=== PATIENT | female | born 1960 | race Caucasian/White ===

== ENCOUNTER → 2018-10-17 | Outpatient (CLI) | payer OTHER | LOC: M.MRI 07:24 | DX: M17.12 Unilateral primary osteoarthritis, left knee (principal); S83.242A Other tear of medial meniscus, current injury, left knee, initial encounter; Z96.652 Presence of left artificial knee joint; X58.XXXA Exposure to other specified factors, initial encounter; Y93.89 Activity, other specified; Y92.89 Other specified places as the place of occurrence of the external cause; Y99.8 Other external cause status ==

== ENCOUNTER 2018-11-21 07:17 | Inpatient (IN) | payer OTHER ==
[2018-11-07 09:50] LABS: URINE BILIRUBIN NEGATIVE (Negative); URINE BLOOD NEGATIVE (Negative); URINE CLARITY CLEAR; URINE COLOR YELLOW; URINE GLUCOSE-RANDOM NEGATIVE (Negative); URINE KETONES NEGATIVE (Negative); URINE LEUKOCYTES-REFLEX NEGATIVE (Negative); URINE NITRITE-REFLEX NEGATIVE (Negative); URINE PROTEIN NEGATIVE (Negative); URINE UROBILINOGEN 0.2 E.U./dl (0.2-1.0)
[2018-11-07 09:56] LABS: HEMATOCRIT 36.3 % (37.0-47.0); HEMOGLOBIN 11.8 gm/dL (12.0-15.0); MCH 27.6 pg (26.0-34.0); MCHC 32.6 g/dL (28.0-37.0); MCV 84.7 fL (80.0-100.0); MPV 7.7 fl. (7.2-11.1); RBC 4.28 mil/uL (4.20-5.00); RDW-CV 13.6 % (10.5-14.5); WBC 6.2 thou/uL (4.0-11.0)
[2018-11-07 09:57] LABS: ALBUMIN 3.7 g/dL (3.4-5.0); CALCIUM 8.6 mg/dL (8.5-10.1); CREATININE 0.8 mg/dL (0.6-1.3); POTASSIUM 3.2 mmol/L (3.5-5.1); TOTAL BILIRUBIN 0.4 mg/dL (<0.1-1.0); TOTAL PROTEIN 7.8 g/dL (6.4-8.2)
--- NOTE | 2018-11-07 16:31 | EKG ---
[place] [address] ELECTROCARDIOGRAM REPORT Name: BYRON FERNANDES Room: PRE IN [facility]#: [id number] Admission: Attend Phys: Kelley Raphael Discharge: Date of : 56 Report #: [id number] THIS REPORT FOR: //name// [facility] Test Date: 2018-11-07 Test Time: 09:45:51 Pat Name: BYRON CAINGAN Department: Room: Gender: F Lithographic Etcher: : 1960 Requested By: Gilbert Millard Order Number: [id number] Reading MD: Keron Hummel Measurements Intervals [place] Rate: 65 P: 50 NM: 141 QRS: 66 QRSD: 90 T: 44 QT: 441 QTc: 459 Interpretive Statements Sinus rhythm No previous ECG available for comparison Electronically Signed On 11-07-2018 16:31:36 [employer] by Keron Hummel [email or web address] <ELECTRONICALLY SIGNED> By: Keron Hummel MD, [facility] 11/07/18 1631 0945 [id number] Keron Hummel MD, FACC /EPI
[~2018-11-21] VITALS: Ht 175.3 cm; Wt 95.3 kg
[~2018-11-21 07:17] MED LIST: HORMONE REPLACEMENT PO; HYDROCHLOROTHIA25 M2 PO; SYNTHROID125 MC1 PO; TYLENOL EXTRA500 MG PO; ZANTAC 150MG T150 MG PO
[2018-11-21 12:05] VITALS: BP 156/90
[2018-11-21 16:02] VITALS: BP 142/86
[2018-11-21 19:50] VITALS: BP 118/61
[2018-11-22] VITALS: BP 117/50
[2018-11-22 04:00] VITALS: BP 109/55
[2018-11-22 04:33] LABS: HEMATOCRIT 30.8 % (37.0-47.0); HEMOGLOBIN 9.7 gm/dL (12.0-15.0); MCH 26.5 pg (26.0-34.0); MCHC 31.7 g/dL (28.0-37.0); MCV 83.5 fL (80.0-100.0); MPV 8.4 fl. (7.2-11.1); NUCLEATED RBCS 0 /100WBC; PLATELET COUNT* 343 thou/uL (150-400); RBC 3.68 mil/uL (4.20-5.00); RDW-CV 13.9 % (10.5-14.5); WBC 16.7 thou/uL (4.0-11.0)
[2018-11-22 04:45] LABS: CALCIUM 8.1 mg/dL (8.5-10.1); CREATININE 0.8 mg/dL (0.6-1.3); MAGNESIUM 2.2 mg/dL (1.8-2.4); POTASSIUM 3.5 mmol/L (3.5-5.1)
[2018-11-22 07:13] LABS: ABSOLUTE LYMPHOCYTES 1.3 thou/uL (0.8-5.3); ABSOLUTE MONOCYTES 0.7 thou/uL (0.0-1.2); ABSOLUTE NEUTROPHILS 14.7 thou/uL (1.6-8.1); ATYPICAL LYMPHS 2 %; PLATELET ESTIMATE ADEQUATE
[2018-11-22 08:05] VITALS: BP 114/55
[2018-11-22] MEDS ORDERED: SENNA PLUS TAB1 EACH PO (12:13)
[2018-11-22] MEDS ORDERED: XARELTO10 MG PO (12:13)
[2018-11-22 14:37] VITALS: BP 114/55
[2018-11-22] MEDS ORDERED: PERCOCET PO (15:39)
--- NOTE | 2018-11-22 16:41 | OP ---
[address] [address] OPERATIVE REPORT Name: BYRON FERNANDES Room: [address] M.R.#: [id number] Admission: 11/21/18 Attend Phys: Kelley Raphael Discharge: Date of : 56 Report #: [id number] THIS REPORT FOR: //name// CC: Jaylin Frederick DATE OF SERVICE: 11/21/2018 PREOPERATIVE DIAGNOSIS: Left knee osteoarthritis. POSTOPERATIVE DIAGNOSIS: Left knee osteoarthritis. PROCEDURE: Left total knee arthroplasty. SURGEON: Gilbert Millard II, DIRECTOR IT PROJECT: JESUS ALBERTO Ho. ANESTHESIA: General endotracheal. ESTIMATED BLOOD LOSS: 50 mL. ANTIBIOTICS: Ancef preoperatively. DRAINS: Medium Hemovac. COMPLICATIONS: None. CONDITION: Stable to recovery room. IMPLANTS: Look in the operative record and progress note. BRIEF HISTORY: The patient was seen in the preoperative area. Preop H and P was performed. Site was marked, questions were answered. Risks and benefits were discussed with the patient in detail about surgery. The patient wished to proceed and assumed all risks. The patient did have previous history of infections with her other total knee, was discussed she has a significantly higher risk of this knee getting infection. The patient assumed this risk and wished to proceed. We will continue with vancomycin in the cement as well as vancomycin postoperatively to attempt to alleviate any concerns of infection, although this is a possibility due to the surgery and the patient's prior history. DESCRIPTION OF PROCEDURE: The patient was taken to the operative suite and placed supine on the operating table and [place] [address] OPERATIVE REPORT Name: BYRON FERNANDES Room: [address] M.R.#: [id number] Admission: 11/21/18 Attend Phys: Kelley Raphael Discharge: Date of : 56 Report #: [id number] well-padded tourniquet applied to upper thigh, was inflated to 300 mmHg after gravity exsanguination. The operative knee was sterilely prepped and draped. Surgery began by midline incision. This was carried down to subcutaneous tissues. A medial parapatellar arthrotomy was performed and carried down to bone. The patella was then everted and excess soft tissue was removed from around the femur. The femoral cutting block was then applied, checked with a drop demetra for rotational alignment, pinned in appropriate position and appropriate cuts were made. A 4-in-1 cutting block was then applied, checked for rotational alignment, pinned in appropriate position, and appropriate cuts were made. The tibia was then exposed. The excess meniscus was removed. Retractor was placed on the collateral ligaments. The tibial cutting block was then applied, pinned in appropriate position, checked with a drop demetra for rotational alignment and slope, and appropriate cut was made. Tibia bone was removed. Tibial base plate was then pinned into position. The femur was then applied and the box cut was reamed. This was then trialed with an appropriate spacer, which showed excellent fit and fill and excellent stability of the knee through all range of motion. The patella was then reamed in the appropriate fashion and sized to appropriate size. Three peg holes were drilled. Knee was then trialed and showed excellent flexion and extension, excellent tracking of the patella within the groove. These trials were removed. The tibia was punched in appropriate fashion. Bone ends were cleaned with Pulsavac irrigation and cement was mixed and applied to the final implants. These were malleted into position, held with the knee in extension and compressed while the cement cured. After it cured, excess was removed using [place] and osteotome. The wound was then copiously irrigated and the final spacer was then malleted in position. The tourniquet was deflated. Hemostasis was obtained with electrocautery. Pain cocktail was injected. PRP gel was sprayed throughout the internal aspects of the knee. Medium Hemovac drain was applied. The capsule closed with #2 FiberWire and #1 Vicryl in [id number] fashion. Skin was closed with 2-0 Vicryl and running 3-0 Monocryl. Dermabond and sterile dressing applied. Jaziel wrap and PolarCare applied. The patient transferred to recovery room in stable condition. Counts were correct throughout the procedure. <ELECTRONICALLY SIGNED> By: Gilbert Millard II, DO 11/22/18 1641 [id number] Millard II, DO /nt
== END 2018-11-22 16:15 | disposition home health service (06) | DRG 470 ==
LOC: M.TBA 07:17 → M.ORTHSURG 07:17 → M.PRE 07:36 → M.ORTHSURG 11:00 → M.PRE 14:07 → M.ORTHSURG 11-22 16:15
PROVIDERS: Family Medicine; Orthopaedic Surgery; ADMIT Internal Medicine
PROC: 0SRD0J9 Replacement of Left Knee Joint with Synthetic Substitute, Cemented, Open Approach (ICD-10-PCS; principal; 2018-11-21)
DX: M17.12 Unilateral primary osteoarthritis, left knee (principal); I12.9 Hypertensive chronic kidney disease with stage 1 through stage 4 chronic kidney disease, or unspecified chronic kidney disease; E03.9 Hypothyroidism, unspecified; K21.9 Gastro-esophageal reflux disease without esophagitis; N18.2 Chronic kidney disease, stage 2 (mild); Z88.6 Allergy status to analgesic agent